=== PATIENT | male | born 1945 | race Caucasian/White ===

== ENCOUNTER 2017-10-20 12:04 | Inpatient (IN) | payer OTHER, MEDICARE ==
[~2017-10-20] VITALS: Ht 182.9 cm; Wt 110.7 kg
--- NOTE | 2017-10-20 14:18 | ED GI/GU/ABDOMINAL COMPLAINT ---
See Addendum History of Present Illness General Chief Complaint: Nausea, Vomiting, Diarrhea Stated Complaint: SENT BY FOR NVD Source: patient Exam Limitations: no limitations Allergies Coded Allergies: NO KNOWN ALLERGIES (10/20/17) Reconcile Medications Aspirin (Aspirin*) 81 MG TAB.CHEW 1 TAB PO DAILY HEART HEALTH (Reported) Atorvastatin Calcium 80 MG TABLET 1 TAB PO DAILY CHOLESTEROL (Reported) Insulin Glargine,Hum.rec.anlog (Toujeo Solostar) (Unknown Strength) INSULN.PEN 75 UNITS SC QPM DIABETES (Reported) Insulin Lispro (Humalog) (Unknown Strength) VIAL (Unknown Dose) DAILY DIABETES (Reported) Lisinopril 20 MG TABLET 1 TAB PO DAILY HEART (Reported) Ondansetron HCl 4 MG TABLET 1 TAB PO BID NAUSEA (Reported) Pregabalin (Lyrica) 200 MG CAPSULE 1 CAP PO BID PAIN (Reported) Sitagliptin Phos/Metformin HCl (Janumet 50-1,000 MG Tablet) 50 MG-1,000 MG TABLET 1 TAB PO BID DIABETES (Reported) Triage Note: PT TO ED WITH C/O NAUSEA, VOMITING AND FREQUENCY WITH URINATION. WENT TO PMD DR BRONSON AND GIVEN ZOFRAN FOR THE NAUSEA. Triage Nurses Notes Reviewed? yes Onset: Abrupt Duration: hour(s):, continues in ED, getting worse, intermittent, waxing and waning Timing: multiple episodes today HPI: Patient presents for evaluation of episodes of diarrhea (Addis RODRIGUEZ,Edwin Kemp) Vital Signs & Intake/Output Vital Signs & Intake/Output Vital Signs Date Time Temp Pulse Resp B/P B/P Pulse O2 O2 Flow FiO2 Mean Ox Delivery Rate 10/23 0647 97.9 72 18 164/84 96 Room Air 10/23 0000 Room Air 10/22 2253 97.8 75 18 158/94 96 Room Air 10/22 1415 98.6 77 18 160/90 96 Room Air 10/22 0915 76 176/76 10/22 0915 76 176/76 10/22 0800 Room Air ED Intake and Output 10/23 0000 10/22 1200 Intake Total 2636 110 Output Total 1900 400 Balance 736 -290 Intake, IV 290 10 Intake, Oral 2346 100 Output, Urine 1900 400 Patient 244 lb Weight Weight Bed scale Measurement Method (Edwin Vanessa DO) Past History Travel History Traveled to [place] past 21 day No Medical History Any Pertinent Medical History? see below for history Cardiovascular: hypertension, hyperlipidemia Endocrine: diabetes Surgical History Surgical History: non-contributory Psychosocial History What is your primary language South Korean Tobacco Use: Quit >30 days ago ETOH Use: denies use Illicit Drug Use: denies illicit drug use Family History Hx Contributory? No (Addis RODRIGUEZ,Edwin Kemp) Review of Systems Review of Systems Constitutional: Reports: no symptoms. EENTM: Reports: no symptoms. Respiratory: Reports: no symptoms. Cardiovascular: Reports: no symptoms. GI: Reports: see HPI. Genitourinary: Reports: no symptoms. Musculoskeletal: Reports: no symptoms. Skin: Reports: no symptoms. Neurological/Psychological: Reports: no symptoms. Hematologic/Endocrine: Reports: no symptoms. Immunologic/Allergic: Reports: no symptoms. All Other Systems: Reviewed and Negative (Addis RODRIGUEZ,Edwin Kemp) Physical Exam Physical Exam Gastrointestinal: SEE BELOW Comments: Gen.: Well-nourished, well-developed, no acute respiratory distress. Head: Normocephalic, atraumatic. Eyes: Normal inspection bilaterally Ears: Normal inspection bilaterally Nose: Normal inspection Throat/mouth : Moist mucosa Neck: Supple, full range of motion, no goiter Heart: Regular rate and rhythm, no murmurs rubs or gallops Lungs: Clear to auscultation bilaterally with normal air entry Chest: Nontender Back: Normal range of motion Abdomen: Soft, nontender, nondistended, normal bowel sounds Extremities: Normal range of motion grossly, equal radial pulses, no cyanosis clubbing or edema Neurologic: Cranial nerves grossly intact, speech is clear Skin: warm and dry Psychiatric: Calm, cooperative, no apparent delusions or hallucinations Core Measures ACS in differential dx? No Sepsis Present: No Sepsis Focused Exam Completed? No (Addis RODRIGUEZ,Edwin Kemp) Progress Differential Diagnosis: COLITIS, DIVERTICULITIS, c. 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 (Addis RODRIGUEZ,Edwin Kemp) Plan of Care: Orders Procedure Date/time Status Consistent Carbohydrate 3 10/22 D Active B-TYPE NATRIURETIC PEP (BNP) 10/22 0640 Complete Lab Add-on Test 10/22 UNK Active Current Medications Sig/Bharat Start time Last Medication Dose Stop Time Status Admin Pregabalin 150 MG BID 10/22 2200 AC 10/22 (Lyrica) 2102 Insulin Aspart 0 TIDAC 10/22 1200 AC 10/22 (NovoLOG) 1702 Lisinopril 30 MG DAILY 10/22 1000 AC 10/22 (Prinivil) 0915 Docusate Sodium 100 MG DAILY NEEDED PRN 10/22 0945 AC (Colace) Polyethylene Glycol 17 GM DAILY PRN 10/22 0945 AC 10/22 (Miralax) 0935 Senna 187 MG AT BEDTIME NEED.. 10/22 0945 AC (Senokot) Azithromycin 500 MG Q24H 10/21 2000 AC 10/22 (Zithromax) 1939 Dextrose/Water 250 ML (D5W) Atorvastatin Calcium 80 MG 1700 10/21 1700 AC 10/22 (Lipitor) 1702 Aspirin 81 MG DAILY 10/21 1000 AC 10/22 (Aspirin) 0913 Heparin Sodium 5,000 UNIT Q8 10/20 2200 AC 10/23 (Porcine) 0544 Trimethobenzamide HCl 200 MG 4 TIMES/DAY PRN 10/20 1815 AC (Tigan) Ceftriaxone Sodium 2,000 MG DAILY 10/20 1807 AC 10/22 (Rocephin) 0915 Laboratory Tests 10/22/17 0805: Urine Osmolality 198 L, Ur Random Creatinine 35.4, Ur Random Sodium 13 L, Ur Random Potassium 8.9, Fraction Sodium Excret 0.2 Initial ED EKG: none, RBBB, nonspecific ST T wave chg, PVC (Edwin Vanessa DO) Departure Departure Disposition: STILL A PATIENT Condition: Stable Referrals: Jonathan Bronson MD (PCP/Family) Departure Forms: Customer Survey General Discharge Information (Edwin Mancini MD) Departure Clinical Impression Primary Impression: Vomiting and diarrhea Secondary Impressions: NSTEMI (non-ST elevated myocardial infarction) Comments 10/20/17 6 PM The patient has no acute changes on his EKG. No chest pain or shortness of breath. He does however have a significantly elevated troponin. Cardiology was consulted. I spoke to Dr. Trujillo who agreed with the plan of care to admit to telemetry. Admission Note Spoke With: Dianna Mccloud MD Documentation of Exam: Documentation of any treatments & extenuating circumstances including Concerns Regarding Discharge (functional status, medication knowledge or non-compliance, living conditions, etc.) that warrant an admission rather than observation: [The patient needs admission for serial troponins, cardiology consultation, cardiac echo, lower extremity ultrasound] (Edwin Vansesa DO)
[2017-10-20] MEDS ORDERED: ASPIRIN81 M4 PO (14:23)
[2017-10-20] MEDS ORDERED: JANUMET 50-1,01 EACH PO (14:24)
[2017-10-20] MEDS ORDERED: ATORVASTATIN CA80 M1 PO (14:24)
[2017-10-20] MEDS ORDERED: LISINOPRIL20 M1 PO (14:24)
[2017-10-20] MEDS ORDERED: HUMALOG100 UNIT/2 (14:25)
[2017-10-20] MEDS ORDERED: TOUJEO SOL300 UNIT/1 SC (14:25)
[2017-10-20] MEDS ORDERED: LYRICA200 M1 PO (14:26)
[2017-10-20] MEDS ORDERED: ONDANSETRON HCL4 MG PO (14:26)
[2017-10-20 14:59] LABS: ABSOLUTE BASOPHIL COUNT 0 /CUMM (0.0-0.2); ABSOLUTE EOSINOPHIL COUNT 0 /CUMM (0.0-0.7); ABSOLUTE GRANULOCYTE CT 5.7 /CUMM (1.4-6.5); ABSOLUTE LYMPH COUNT 1.2 /CUMM (1.2-3.4); ABSOLUTE MONOCYTE COUNT 0.8 /CUMM (0.10-0.60); BASOPHIL % 0.4 % (0.0-2.0); EOSINOPHIL % 0 % (0-5); GRANULOCYTE % 73.9 % (42.2-75.2); MEAN CORPUSCULAR HGB 28.3 PG (27.0-31.0); MEAN CORPUSCULAR VOLUME 83.2 FL (80.0-94.0); MEAN PLATELET VOLUME 8.4 FL (7.4-10.4); PLATELET COUNT 219 /CUMM (130-400); RBC DISTRIBUTION WIDTH 13.9 % (11.5-14.5); RED BLOOD CELL CT 5.29 /CUMM (4.70-6.10); WHITE BLOOD CELL COUNT 7.7 /CUMM (4.8-10.8)
--- NOTE | 2017-10-20 16:45 | CT SCAN REPORT ---
EXAMINATION: CT ABDOMEN AND PELVIS WITH CONTRAST CLINICAL INFORMATION: Diarrhea and vomiting; question colitis, diverticulitis or small bowel obstruction. COMPARISON: None TECHNIQUE: Multidetector volumetric imaging was performed of the abdomen and pelvis following IV administration of 95 mL of Optiray 320 intravenous contrast. Sagittal and coronal reformatted images were obtained on the technologist's workstation. DLP: 1408.27 mGy-cm FINDINGS: LUNG BASES: There is patchy, nodular consolidation at the posterior right base. There are coronary artery atherosclerotic calcifications. LIVER, GALLBLADDER, AND BILIARY TREE: The liver is normal in size, shape, and mildly diminished in attenuation. No focal hepatic lesion or biliary ductal dilatation is present. There are small layering gallstones, without gallbladder wall thickening, or obvious pericholecystic inflammatory changes. PANCREAS: Unremarkable. SPLEEN: Unremarkable. ADRENAL GLANDS: The right adrenal gland is unremarkable. In the posterior limb of the left adrenal gland (2:29), there is a 1.5 cm nodule with post IV contrast Hounsfield value of 24.0 units. KIDNEYS AND URETERS: The kidneys are normal in size, shape, and attenuation. No hydronephrosis, hydroureter, or calculi seen. At the lower pole of the right kidney (602:61), a 1.2 cm low-attenuation probable cyst is seen, too small to fully characterize with CT. No perinephric stranding. BLADDER: Unremarkable. GASTROINTESTINAL TRACT: The rectosigmoid is mildly distended with liquid stool. No focal bowel wall thickening is seen. There is no obstruction or ileus. There is no significant diverticulosis or diverticulitis. The vermiform appendix appears diminutive and unremarkable. ABDOMINAL WALL: There is a small fat-containing umbilical hernia. There are small fat-containing bilateral inguinal hernias. LYMPH NODES: Normal. VASCULAR: There is moderate aortoiliac atherosclerotic change. No abdominal aortic aneurysm is seen. PELVIC VISCERA: The prostate and seminal vesicles are unremarkable. Coarse prostate calcifications are seen. OSSEOUS STRUCTURES: There is marked multi-level thoracolumbar degenerative disc disease and spondylosis. There is a mild anterior wedge compression fracture of L3, chronicity indeterminate. IMPRESSION: 1. There is patchy, nodular consolidation in the posterior right base, with appearance suggesting acute pneumonia. Please correlate clinically. Consider chest radiographic follow-up. 2. There is cholelithiasis, without cholecystitis seen. 3. There is hepatic steatosis. 4. A 1.5 cm left adrenal nodule is indeterminate but likely benign. There are various recommendations for management and followup. Based upon a combination of expert imaging consensus and agronomy manager input ([id number]) if the patient has no known malignancy hormonal evaluation is recommended for these lesions measuring less than or equal to 2.4 cm. Some of these adrenal lesions secrete hormones including cortisol. Repeat imaging may be obtained in 12 months. 5. No bowel obstruction, free intraperitoneal air or abscess is seen. There is no appendicitis or diverticulitis. 6. There are small fat-containing umbilical and bilateral inguinal hernias. 7. There are marked thoracolumbar degenerative changes.
--- NOTE | 2017-10-20 18:05 | History & Physical ---
Miguel RODRIGUEZ,[facility] 10/20/17 1804: General Information and HPI MD Statement: I have seen and personally examined JOEL REIS and documented this H&P. The patient is a 72 year old M who presented with a patient stated chief complaint of [nausea vomiting diarrhea]. Source of Information: patient, family History of Present Illness: 72-year-old male pmhx: HLD, HTN, chronic back pain, diabetes presenting for chief complaint of nausea vomiting diarrhea. Most of history is given by the patient's son is patient is sick of giving the history. The son states that the patient has had nausea vomiting for 3 days. Due to persistent nausea vomiting the patient has not taken any medications for 3 days. The patient is reported a decreased appetite. The patient has had loose stools for 2 days. He also reports chills, abdominal pain, and a few days of coughing. The patient also complains of leg swelling for 2 months. The son states that the patient's has had bronchitis for the past week. The patient felt extremely weak and had difficulty getting up after prolonged periods rest. The patient went to Dr. Villa office and was then sent for an echo. During his visit to the cmv driver, the cmv driver stated that the patient did not need a repeat echo as the patient got one done last recently. The patient states that he does not see a cmv driver regularly. The son states the patient was supposed to see a neurologist as well. The patient was given a prescription for Zofran should not improve his symptoms. He called Dr. Villa today as his symptoms did not improve and was told to go to the emergency department. The patient denies any fevers, eating anything sport, chest pain, shortness breath, dizziness, blurred vision, bleeding. Allergies/Medications Allergies: Coded Allergies: NO KNOWN ALLERGIES (10/20/17) Home Med list Aspirin (Aspirin*) 81 MG TAB.CHEW 1 TAB PO DAILY HEART HEALTH (Reported) Atorvastatin Calcium 80 MG TABLET 1 TAB PO DAILY CHOLESTEROL (Reported) Insulin Glargine,Hum.rec.anlog (Candida Calixtoostsarah) (Unknown Strength) INSULN.PEN (Unknown Dose) SC QPM DIABETES (Reported) Insulin Lispro (Humalog) (Unknown Strength) VIAL (Unknown Dose) DAILY DIABETES (Reported) Lisinopril 20 MG TABLET 1 TAB PO DAILY HEART (Reported) Ondansetron HCl 4 MG TABLET 1 TAB PO BID NAUSEA (Reported) Pregabalin (Lyrica) 200 MG CAPSULE 1 CAP PO BID PAIN (Reported) Sitagliptin Phos/Metformin HCl (Janumet 50-1,000 MG Tablet) 50 MG-1,000 MG TABLET 1 TAB PO BID DIABETES (Reported) Past History Travel History Traveled to [place] past 21 day No Medical History Cardiovascular: hypertension, hyperlipidemia Endocrine: diabetes Surgical History Surgical History: non-contributory Past Family/Social History Psychosocial History Smoking Status: Former Smoker ETOH Use: denies use Illicit Drug Use: denies illicit drug use Review of Systems Review of Systems Constitutional: Reports: see HPI. Exam & Diagnostic Data Last 24 Hrs of Vital Signs/I&O Vital Signs Date Time Temp Pulse Resp B/P B/P Pulse O2 O2 Flow FiO2 Mean Ox Delivery Rate 10/20 1829 98.1 87 18 162/84 95 Room Air 10/20 1625 98.6 86 18 170/90 94 Room Air 10/20 1446 98.3 88 18 158/80 97 Room Air 10/20 1445 96 Room Air 10/20 1220 99.1 88 18 176/75 96 Room Air Room Air Intake & Output 10/20 1600 10/20 0800 10/20 0000 Intake Total 0 Output Total Balance 0 Intake, Oral 0 Patient 243 lb Weight Weight Reported by Patient Measurement Method Physical Exam General Appearance Alert, Oriented X3, Cooperative, No Acute Distress HEENT no JVD Cardiovascular Regular Rate, Normal S1, Normal S2 Lungs diffuse decrease in movement Abdomen Normal Bowel Sounds, Soft, No Tenderness Last 24 Hrs of Labs/Sonny: Laboratory Tests 10/20/17 1544: Urine Color YEL, Urine Clarity CLEAR, Urine pH 6.0, Ur Specific [place] >= 1.030 , Urine Protein >=300 H, Urine Ketones TRACE H, Urine Nitrite NEG, Urine Bilirubin NEG, Urine Urobilinogen 0.2, Ur Leukocyte Esterase NEG, Ur Microscopic SEDIMENT EXAMINED, Urine RBC 5-10 H, Urine WBC 1-3 H, Ur Epithelial Cells RARE , Urine Bacteria MOD H, Hyaline Casts RARE H, Urine Mucus FEW, Urine Hemoglobin LARGE H, Urine Glucose NEG 10/20/17 1439: Anion Gap 9, Estimated GFR > 60, BUN/Creatinine Ratio 21.0, Glucose 54 L, Calcium 8.2 L, Total Bilirubin 0.9, AST 106 H, ALT 70, Alkaline Phosphatase 232 H, Troponin I 0.38 *H, Total Protein 6.3, Albumin 3.0 L, Globulin 3.3, Albumin/Globulin Ratio 0.9 L, Lipase 59, CBC w Diff NO MAN DIFF REQ, RBC 5.29, MCV 83.2, MCH 28.3, MCHC 34.0, RDW 13.9, MPV 8.4, Gran % 73.9, Lymphocytes % 15.8 L, Monocytes % 9.9 H, Eosinophils % 0, Basophils % 0.4, Absolute Granulocytes 5.7, Absolute Lymphocytes 1.2, Absolute Monocytes 0.8 H, Absolute Eosinophils 0, Absolute Basophils 0 Microbiology 10/20 1906 STOOL: Clostridium difficile Toxin A & B - ORD 10/20 183 NASOPHARYN: Influenza Virus A & B Rapid Smear - COMP 10/20 1820 LOWER RESP: Respiratory Culture - ORD 10/20 1820 LOWER RESP: Gram Stain - ORD 10/20 1706 URINE ROUT: Legionella Antigen - COLB 10/20 1706 URINE ROUT: Streptococcus pneumoniae Antigen (M - COLB Assessment/Plan Assessment: A: 72-year-old male pmhx: HLD, HTN, chronic back pain, diabetes presenting for chief complaint of nausea vomiting diarrhea found to also have pneumonia on CT scan. P: #pneumonia Patient remains afebrile without any white count CT chest:here is patchy, nodular consolidation in the posterior right base, with appearance suggesting acute pneumonia. -Sized ceftriaxone, azithromycin #elevated trops trops .38 -Most likely secondary to demand ischemia -Follow-up troponins and EKG x2 mroe to r/o ACS #lytes abnormal possible due to n/v/d vs aldosterone tumor NA 134 K3.3 albumin 3.0 Patient also hypertensive -Follow-up aldosterone levels, plasma renin, metanephrines, and cortisol, -Continue to monitor bep #N/V/D Possibly due to pneumonia versus gastroenteritis versus C. difficile -Encourage by mouth intake -Follow-up C. difficile #hypoglycemia BS 54 -stop home medications - Continue NovoLog sliding scale -Consider endocrinology consult as patient does not have a electric locomotive firer/fireman #htn BP Max 176/75 #ct findings; gallstones, fatty liver, L adrenal nodule, degenerative spine 1. There is cholelithiasis 2. There is hepatic steatosis. 3. A 1.5 cm left adrenal nodule is indeterminate but likely benign. 4. There are small fat-containing umbilical and bilateral inguinal hernias. 5. There are marked thoracolumbar degenerative changes. -Outpatient follow-up for left adrenal nodule #chronic medical conitions; hld, back pain -aspirin, Atorvastatin, pregabalin #FULL CODE #DVT ppx heparin subcutaneous As Ranked By This Provider Problem List: 1. Gastroenteritis 2. Hypoglycemia 3. Pneumonia 4. Elevated troponin 5. Abnormal finding on CT scan Core Measures/Misc (04/12) Acute Coronary Syndrome ACS Diagnosis: No Congestive Heart Failure Congestive Heart Failure Diagnosis No Cerebrovascular Accident CVA/TIA Diagnosis: No VTE (View Protocol) VTE Risk Factors Acute Medical Illness No Mechanical VTE Prophylaxis d/t N/A MechProphylax Ordered No VTE Pharm Prophylaxis d/t NA PharmProphylax ordered Sepsis (View protocol) Sepsis Present: No Charity Santacruz MD 10/20/17 1809: Resident Review Statement Resident Statement: examined this patient, discussed with internet database specialist, agreed with internet database specialist Other Findings: Patient is a 72-year-old male presented with chief complaints of nausea, vomiting, increased frequency of urination. He went to Dr. Pollock office and was given Zofran and advised to come to the [facility]. History is taken from the patient and his son Robbie. According to them patient was sick since last 3-4 days. He started having diarrhea, in terms of increase frequency of stool 2-3 times in a day. Followed by nausea and vomiting. Since yesterday he is not able to take any food or food by the mouth. He did follow Dr. Pollock who advised for cardiology and neurology evaluation because he was having weakness in his hands. He went to Dr. Xavier who cleared from the cardiology point of view. Because he was weak and not able to tolerate food and fluid, he again called Dr. Fuentes in the morning and who advised him to come to the [facility]. Of note patient was also complaining of cough with expectoration since couple of days. And he also told that his is sick since 8-10 days because of bronchitis and currently on antibiotic. Of note he was having bilateral lower leg swelling since last 1 or 2 months and had an episode of fall a month ago without any injury. He denies for any shortness of breath, chest pain, palpitation, dizziness, blurry vision. ED course Vital signs-temperature 99.1, pulse 88, respiratory 18, blood pressure 176/75, SPO2 96% on room air. Physical exam -patient is conscious, cooperative, alert oriented to time place and person, morbidly obese, was anxious because he was hungry, oral cavity moist , neck short, no JVD, chest-right lower lobe crackles -inspiratory, heart S1-S2 normal, abdomen distended, bilateral lower extremities pitting edema present. EKG -RBBB, HR -85, inverted T wave -III,AVF. Blood workup showed hemoglobin 15.0, hematocrit 44, platelet count 219, monocytes 9.9, no band cells, sodium 134, potassium 3.3, chloride 97, anion gap 9, BUN 21, creatinine 1.0, glucose 54, calcium 8.2, total bilirubin 0.9, AST 106 , ALT 70, alkaline phosphate 232, troponin I 0.38, albumin 3.0, globulin 3.3, urinalysis shows urine protein more than 300 and ketones are trace. PMH - Diabetes since last 20 years on insulin pump. Hypertension Hyperlipidemia Chronic back pain Surgical history-noncontributory Allergies-no known drug allergies Family history-both parents are Personal history-he lives at home, uses cane off and on, he quit smoking around 30 years ago, denies for alcohol and illicit drug abuse. Assessment and plan - Right lower lobe pneumonia, possibly community-acquired but aspiration cannot be ruled out - * We will do a urinary Legionella, strep antigen, flu test, LRTC * We will start patient on ceftriaxone and azithromycin * If patient started spiking fever then we will take the blood cultures. * We will start patient on IV fluid D5/NS -75 cc/h * Inj tigan as needed for nausea (QTc is 509) Type 2 diabetes - * Consistent carbohydrate type II * Fingerstick 3 times daily/at bedtime * NovoLog according to the sliding scale * We will start patient on IV fluid D5/normal saline 75 cc/h Type II NM/demand ischemia - * We will do serial troponins and EKG. * Will follow cardiology recommendation -Dr. Palma group he is following Dr. 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 * Supplement pottasium. CODE STATUS-full code Diet-consistent carbohydrate to diet and if patient not able to tolerate and keep n.p.o. for overnight DVT prophylaxis-Alps/heparin Dianna Mccloud MD 10/20/17 1854: Attending MD Review Statement Attending Statement Attending MD Statement: examined this patient, discuss w/resident/PA/SENIOR COLDFUSION DEVELOPER, agreed w/resident/PA/SENIOR COLDFUSION DEVELOPER, reviewed EMR data (avail) Attending Assessment/Plan: 72M PMH HTN, HLD, T2DM with 2 days of nausea, vomiting, diarrhea, and abdominal cramping, went to his PCP yesterday, given Zofran, comes to ED today because of persistance of symptoms. He actually feels a bit better now and hungry for the first time in two days. He has a deep, productive cough and had to catch his breath after a coughing fit in front of me. This has been present for 2-3 days. He is afebrile, stable vitals, but was found to have a troponin of 0.33. EKG shows RBBB, no ST/T changes. He reports feeling weak with malaise, but denies chest pain, palpitations, SOB, diaphoresis, lightheadedness. CT abdomen shows RLL pneumonia and 1.5cm adrenal nodule. 1. RLL pneumonia 2. Elevated troponin 3. Adrenal nodule 4. Acute gastroenteritis 5. Dehydration Plan - Admit to telemetry - Ceftriaxone and Azithromycin - Sputum culture - Send C.diff - Serial troponin and EKG - If next troponin is higher would start heparin - ASA and statin - IV hydration - Monitor electrolytes - Given elevated troponin and adrenal nodule, would check 24-hour metanephrines and cortisol level - Zofran PRN for nausea - Clear liquid diet, if troponin rising or EKG changes make NPO for prospective cardiac cath - Cardiology consult - Continue home medications - Sliding scale insulin - DVT PPx
--- NOTE | 2017-10-20 18:36 | Cons- Cardiology ---
General Information and HPI Consulting Request Date of Consult: 10/20/17 Requested By: Dianna Mccloud MD Reason for Consult: Positive troponin in a patient who presents with nonspecific symptoms. Source of Information: patient, old records Exam Limitations: poor historian History of Present Illness: The patient is a 72-year-old man with no history of heart disease. Has had hypertension, dyslipidemia and diabetes. Apparently his diabetes is not well- controlled. The patient was complaining of nausea, vomiting and polyuria. He is also having diarrhea. He has not been eating well. He came to the hospital where his troponin was found to be 0.38, although is not having any chest pain, shortness of breath, palpitations, dizziness, syncope. He does have chronic ankle edema. His EKG shows right bundle branch block and PVCs and we have no old EKGs for comparison. Allergies/Medications Allergies: Coded Allergies: NO KNOWN ALLERGIES (10/20/17) Home Med List: Aspirin (Aspirin*) 81 MG TAB.CHEW 1 TAB PO DAILY HEART HEALTH (Reported) Atorvastatin Calcium 80 MG TABLET 1 TAB PO DAILY CHOLESTEROL (Reported) Insulin Glargine,Hum.rec.anlog (Toujeo Solostar) (Unknown Strength) INSULN.PEN (Unknown Dose) SC QPM DIABETES (Reported) Insulin Lispro (Humalog) (Unknown Strength) VIAL (Unknown Dose) DAILY DIABETES (Reported) Lisinopril 20 MG TABLET 1 TAB PO DAILY HEART (Reported) Ondansetron HCl 4 MG TABLET 1 TAB PO BID NAUSEA (Reported) Pregabalin (Lyrica) 200 MG CAPSULE 1 CAP PO BID PAIN (Reported) Sitagliptin Phos/Metformin HCl (Janumet 50-1,000 MG Tablet) 50 MG-1,000 MG TABLET 1 TAB PO BID DIABETES (Reported) Current Medications: Current Medications Sig/Bharat Start time Last Medication Dose Route Stop Time Status Admin Aspirin 81 MG DAILY 10/21 1000 AC PO Atorvastatin Calcium 80 MG 1700 10/21 1700 AC PO Azithromycin 500 MG DAILY 10/20 1808 AC Dextrose/Water 250 ML IV Ceftriaxone Sodium 2,000 MG DAILY 10/20 1807 AC IV Dextrose/Water 1,000 ML Q13H 10/20 1715 AC IV Heparin Sodium 5,000 UNIT Q8 10/20 2200 AC (Porcine) SC Insulin Aspart 0 TIDAC 10/21 0800 AC SC Lisinopril 20 MG DAILY 10/20 1824 UNVr PO Ondansetron HCl 0 .STK-MED ONE 10/20 1550 DC .ROUTE Ondansetron HCl 4 MG ONCE ONE 10/20 1515 DC 10/20 IV 10/20 1516 1600 Sodium Chloride 1,000 ML Q13H 10/20 1715 CAN IV Sodium Chloride 500 ML BOLUS ONE 10/20 1515 DC 10/20 IV 10/20 1614 1542 Trimethobenzamide HCl 200 MG 4 TIMES/DAY PRN 10/20 1815 AC IM Review of Systems Review of Systems: He is complaining of chronic back pain in addition to his presenting symptoms Past History Travel History Traveled to [place] past 21 day No Medical History Cardiovascular: hypertension, hyperlipidemia Endocrine: diabetes Surgical History Surgical History: non-contributory Psychosocial History ETOH Use: denies use Illicit Drug Use: denies illicit drug use Exam & Diagnostic Data Vital Signs and I&O Vital Signs Date Time Temp Pulse Resp B/P B/P Pulse O2 O2 Flow FiO2 Mean Ox Delivery Rate 10/20 1625 98.6 86 18 170/90 94 Room Air 10/20 1446 98.3 88 18 158/80 97 Room Air 10/20 1445 96 Room Air 10/20 1220 99.1 88 18 176/75 96 Room Air Room Air Intake & Output 10/20 1600 10/20 0800 10/20 0000 10/19 1600 10/19 0800 10/19 0000 Intake Total 0 Output Total Balance 0 Intake, Oral 0 Patient 243 lb Weight Weight Reported by Patient Measurement Method Physical Exam: This is an elderly-appearing obese man in mild distress HEENT exam is normal Neck veins not distended Carotids normal Chest clear to limited exam Heart regular rhythm with occasional extrasystole heard, soft systolic murmur at the base Abdomen benign Extremities 1-2+ ankle and lower extremity edema Labs/Sonny Results: Laboratory Tests 10/20 10/20 1544 1439 Chemistry Sodium (137 - 145 mmol/L) 134 L Potassium (3.5 - 5.1 mmol/L) 3.3 L Chloride (98 - 107 mmol/L) 97 L Carbon Dioxide (22 - 30 mmol/L) 29 Anion Gap (5 - 16) 9 BUN (9 - 20 mg/dL) 21 H Creatinine (0.7 - 1.2 mg/dL) 1.0 Estimated GFR (>60 ml/min) > 60 BUN/Creatinine Ratio (7 - 25 %) 21.0 Glucose (65 - 99 mg/dL) 54 L Calcium (8.4 - 10.2 mg/dL) 8.2 L Total Bilirubin (0.2 - 1.3 mg/dL) 0.9 AST (17 - 59 U/L) 106 H ALT (21 - 72 U/L) 70 Alkaline Phosphatase (< 127 U/L) 232 H Troponin I (<0.11 ng/ml) 0.38 *H Total Protein (6.3 - 8.2 g/dL) 6.3 Albumin (3.5 - 5.0 g/dL) 3.0 L Globulin (1.9 - 4.2 gm/dL) 3.3 Albumin/Globulin Ratio (1.1 - 2.2 %) 0.9 L Lipase (23 - 300 U/L) 59 Hematology CBC w Diff NO MAN DIFF REQ WBC (4.8 - 10.8 /CUMM) 7.7 RBC (4.70 - 6.10 /CUMM) 5.29 Hgb (14.0 - 18.0 G/DL) 15.0 Hct (42 - 52 %) 44.0 MCV (80.0 - 94.0 FL) 83.2 MCH (27.0 - 31.0 PG) 28.3 MCHC (33.0 - 37.0 G/DL) 34.0 RDW (11.5 - 14.5 %) 13.9 Plt Count (130 - 400 /CUMM) 219 MPV (7.4 - 10.4 FL) 8.4 Gran % (42.2 - 75.2 %) 73.9 Lymphocytes % (20.5 - 51.1 %) 15.8 L Monocytes % (1.7 - 9.3 %) 9.9 H Eosinophils % (0 - 5 %) 0 Basophils % (0.0 - 2.0 %) 0.4 Absolute Granulocytes (1.4 - 6.5 /CUMM) 5.7 Absolute Lymphocytes (1.2 - 3.4 /CUMM) 1.2 Absolute Monocytes (0.10 - 0.60 /CUMM) 0.8 H Absolute Eosinophils (0.0 - 0.7 /CUMM) 0 Absolute Basophils (0.0 - 0.2 /CUMM) 0 Urines Urine Color (YEL,AMB,STR) YEL Urine Clarity (CLEAR) CLEAR Urine pH (5.0 - 8.0) 6.0 Ur Specific [place] (1.001 - 1.035) >= 1.030 Urine Protein (NEG,<30 MG/DL) >=300 H Urine Ketones (NEG) TRACE H Urine Nitrite (NEG) NEG Urine Bilirubin (NEG) NEG Urine Urobilinogen (0.1 - 1.0 EU/dl) 0.2 Ur Leukocyte Esterase (NEG) NEG Ur Microscopic SEDIMENT EXAMINED Urine RBC (0 - 5 /HPF) 5-10 H Urine WBC (0 - 2 /HPF) 1-3 H Ur Epithelial Cells (NONE,FEW) RARE Urine Bacteria (NEG/NONE) MOD H Hyaline Casts (0/LPF) RARE H Urine Mucus (FEW,NONE) FEW Urine Hemoglobin (NEG) LARGE H Urine Glucose (N MG/DL) NEG Diagnostic Data EKG Results EKG shows a sinus rhythm at rate of 80 with occasional PVCs and right bundle branch block pattern. There are no old EKGs for comparison. CXR Results Not done. CT of the abdomen noted possible pneumonia in the posterior right base of the long Assessment/Plan Assessment/Plan The patient is a 72-year-old man who presents with nonspecific abdominal and GI complaints. He is found to have an abnormal EKG although it does not appear to be anything acute, and a Troponin of 0.38. I recommend telemetry admission with trending of the EKGs and troponins. I would obtain an echocardiogram. If his troponin rises significantly then acute heparinization may be indicated, if not contraindicated by GI. Further recommendations will follow after additional monitoring and testing. Consult Acknowledgment - Thank you for your consult request.
--- NOTE | 2017-10-20 18:58 | Admission Certification ---
Admission Certification Certification Statement - As attending physician, I certify that at the time of - admission, based on clinical presentation, severity of - symptoms, need for further diagnostic testing and - therapeutic interventions, and risk of adverse outcomes - without in-hospital treatment, in my clinical assessment, - this patient requires an acute hospital stay for a minimum - of two nights or longer. I have also considered psychsocial - factors such as support system, advanced age, financial - issues, cognitive issues, and failed out-patient treatments, - past re-admission history, safety of patient, and lack of - compliance as applicable. Specific rationale supporting this admission is: Gastroenteritis with elevated troponin
[2017-10-20 21:51] VITALS: BP 178/80
--- NOTE | 2017-10-21 09:51 | PN- Housestaff ---
Miguel RODRIGUEZ,[facility] 10/21/17 0951: Subjective Follow-up For: N/V ?aldosterone tumor Pna type 2 UT hypoglycemia HTN abnormal electrolytes Tele-Events Since Last Visit: SVT run last evening Subjective: No acute events overnight. Continues to have some cough. NO SOB or chest pain. States leg swelling has improved. Review of Systems Constitutional: Reports: see HPI. Objective Last 24 Hrs of Vital Signs/I&O Vital Signs Date Time Temp Pulse Resp B/P B/P Pulse O2 O2 Flow FiO2 Mean Ox Delivery Rate 10/21 1654 77 198/84 10/21 1440 97.8 86 20 172/78 96 Room Air 10/21 0755 84 178/80 10/21 0354 Room Air 10/20 2307 98.9 10/20 2151 94 Room Air 10/20 2151 84 24 178/80 94 Room Air 10/20 2124 99.2 80 18 158/90 97 Room Air 10/20 2041 87 162/84 Intake & Output 10/21 1600 10/21 0800 10/21 0000 Intake Total 1200 1200 2105 Output Total 600 100 Balance 8718 514 8205 Intake, IV 445 806 1099 Intake, Oral 600 600 780 Number 2 1 4 Bowel Movements Output, Urine 600 100 Patient 243 lb Weight Weight Bed scale Measurement Method Physical Exam General Appearance: Alert, Oriented X3, Cooperative Cardiovascular: Regular Rate, Normal S1, Normal S2 Lungs: RML and RLL crackles Abdomen: Normal Bowel Sounds, Soft, No Tenderness Extremities: LLE 3+ edema vs RLE 2+ edema Vascular: 2+ radial pulses Assessment/Plan Assessment: A: 72-year-old male pmhx: HLD, HTN, chronic back pain, diabetes presenting for chief complaint of nausea vomiting diarrhea found to also have pneumonia on CT scan. P: #pneumonia Patient remains afebrile without any white count CT chest:here is patchy, nodular consolidation in the posterior right base, with appearance suggesting acute pneumonia. Flu, urinary antigens, negative Passed formal swallow eval - cont ceftriaxone, azithromycin #type II UT trops .38, .27, .2 Echo - EF >65% -Most likely secondary to demand ischemia 2/2 to infection #lytes abnormal possible due to n/v/d vs aldosterone tumor NA 134 -> 131 K3.3 albumin 3.0 Patient also hypertensive -holding fluids as patient now taking po -replenishing lytes as needed -f/u repeat 9pm k+ -Follow-up aldosterone levels, plasma renin, metanephrines, and cortisol, -Continue to monitor bep #N/V/D Possibly due to pneumonia versus gastroenteritis C.diff negative -Encourage by mouth intake #hypoglycemia BS 54 originally -stop home medications - Continue NovoLog sliding scale -Consider endocrinology consult as 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 There is cholelithiasis 2. There is hepatic steatosis. 3. A 1.5 cm left adrenal nodule is indeterminate but likely benign. 4. There are small fat-containing umbilical and bilateral inguinal hernias. 5. There are marked thoracolumbar degenerative changes. -will need outpatient follow-up for left adrenal nodule #chronic medical conitions; hld, back pain -aspirin, Atorvastatin, pregabalin #FULL CODE #DVT ppx heparin subcutaneous Problem List: 1. Abnormal finding on CT scan 2. Gastroenteritis 3. Pneumonia 4. Type 2 myocardial infarction Pain Ratin Pain Location: none Pain Goal: Pain 4 or less Pain Plan: pain pathway Tomorrow's Labs & Rationales: bep Trina Salinasjames 10/21/17 1517: Attending MD Review Statement Attending Statement Attending MD Statement: examined this patient, discuss w/resident/PA/COMMISSARY SUPERINTENDENT, agreed w/resident/PA/COMMISSARY SUPERINTENDENT, reviewed EMR data (avail), discussed with nursing, discussed with case mgmt Attending Assessment/Plan: Pneumonia- CT scan showed post rt base consolidation. pt wbing treated on ceftrixone and zithromax. Hyponatremia and hypokalemia. replaced potassium. Will recheck sodium level in am. Trop trending down. WIll f/u on cardio recommendatiosn. Likely type 2 UT secondary to demand ischemia. Await echo results. Gallstones on CT scan but no evidence of cholecystitis.
--- NOTE | 2017-10-21 10:51 | PN- Cardiology ---
Subjective Subjective: The patient is feeling better today. He was able to eat this morning without nausea or vomiting. His troponins have been decreasing and the latest one was 0.20. There've been no arrhythmias. His echocardiogram was done and will be read shortly. Objective Vital Signs and I&Os Vital Signs Date Time Temp Pulse Resp B/P B/P Pulse O2 O2 Flow FiO2 Mean Ox Delivery Rate 10/21 0755 84 178/80 10/21 0354 Room Air 10/20 2307 98.9 10/20 2151 94 Room Air 10/20 2151 84 24 178/80 94 Room Air 10/20 2124 99.2 80 18 158/90 97 Room Air 10/20 2041 87 162/84 10/20 1829 98.1 87 18 162/84 95 Room Air 10/20 1625 98.6 86 18 170/90 94 Room Air 10/20 1446 98.3 88 18 158/80 97 Room Air 10/20 1445 96 Room Air 10/20 1220 99.1 88 18 176/75 96 Room Air Room Air Intake & Output 10/21 1600 10/21 0800 10/21 0000 10/20 1600 10/20 0800 10/20 0000 Intake Total 1200 2105 0 Output Total 600 100 Balance 600 2005 0 Intake, IV 600 1325 Intake, Oral 600 780 0 Number 1 4 Bowel Movements Output, Urine 600 100 Patient 243 lb 243 lb Weight Weight Bed scale Reported by Patient Measurement Method Physical Exam: He is in no distress HEENT exam is normal Chest is clear Heart regular rhythm, soft systolic murmur at the base Extremities good pulses Current Medications: Current Medications Sig/Bharat Start time Last Medication Dose Route Stop Time Status Admin Aspirin 81 MG DAILY 10/21 1000 AC 10/21 PO 0755 Aspirin 0 .STK-MED ONE 10/20 190 DC PO Aspirin 81 MG ONCE ONE 10/20 1830 DC 10/20 PO 10/20 183 2041 Atorvastatin Calcium 80 MG 1700 10/21 1700 AC PO Azithromycin 500 MG Q24H 10/21 2000 AC Dextrose/Water 250 ML IV Azithromycin 500 MG DAILY 10/20 180 DC 10/20 Dextrose/Water 250 ML IV 204 Ceftriaxone Sodium 0 .STK-MED ONE 10/20 1904 DC .ROUTE Ceftriaxone Sodium 0 .STK-MED ONE 10/20 190 DC .ROUTE Ceftriaxone Sodium 2,000 MG DAILY 10/20 1807 AC 10/21 IV 0754 Dextrose/Water 1,000 ML Q13H 10/20 1715 AC 10/20 IV 2116 Heparin Sodium 5,000 UNIT Q8 10/20 2200 AC 10/21 (Porcine) SC 0546 Insulin Aspart 0 TIDAC 10/21 0800 AC SC Lisinopril 0 .STK-MED ONE 10/20 1902 DC PO Lisinopril 20 MG DAILY 10/20 1824 AC 10/21 PO 0755 Ondansetron HCl 0 .STK-MED ONE 10/20 1550 DC .ROUTE Ondansetron HCl 4 MG ONCE ONE 10/20 1515 DC 10/20 IV 10/20 1516 1600 Potassium Chloride 40 MEQ BID 10/21 1000 AC PO 10/21 2201 Potassium Chloride 40 MEQ ONCE ONE 10/20 1930 DC 10/20 PO 10/20 1931 2230 Sodium Chloride 1,000 ML Q13H 10/20 1715 CAN IV Sodium Chloride 500 ML BOLUS ONE 10/20 1515 DC 10/20 IV 10/20 1614 1542 Trimethobenzamide HCl 200 MG 4 TIMES/DAY PRN 10/20 1815 AC IM Results Last 48 Hrs of Labs/Mics: Laboratory Tests 10/21/17 0628: Anion Gap 9, Estimated GFR > 60, BUN/Creatinine Ratio 23.3, Magnesium 1.6, Total Bilirubin 0.7, Direct Bilirubin 0.4, AST 101 H, ALT 65, Alkaline Phosphatase 203 H, Total Protein 5.1 L, Albumin 2.3 L 10/21/17 0209: Troponin I 0.20 *H 10/20/172111: Troponin I 0.27 *H 10/20/17 211: Renin Pending, Aldosterone Pending 10/20/17 1544: Urine Color YEL, Urine Clarity CLEAR, Urine pH 6.0, Ur Specific [place] >= 1.030 , Urine Protein >=300 H, Urine Ketones TRACE H, Urine Nitrite NEG, Urine Bilirubin NEG, Urine Urobilinogen 0.2, Ur Leukocyte Esterase NEG, Ur Microscopic SEDIMENT EXAMINED, Urine RBC 5-10 H, Urine WBC 1-3 H, Ur Epithelial Cells RARE , Urine Bacteria MOD H, Hyaline Casts RARE H, Urine Mucus FEW, Urine Hemoglobin LARGE H, Urine Glucose NEG 10/20/17 1439: Anion Gap 9, Estimated GFR > 60, BUN/Creatinine Ratio 21.0, Glucose 54 L, Hemoglobin A1c Pending, Calcium 8.2 L, Total Bilirubin 0.9, AST 106 H, ALT 70, Alkaline Phosphatase 232 H, Troponin I 0.38 *H, Total Protein 6.3, Albumin 3.0 L, Globulin 3.3, Albumin/Globulin Ratio 0.9 L, Lipase 59, Cortisol AM Sample 26.2 H, CBC w Diff NO MAN DIFF REQ, RBC 5.29, MCV 83.2, MCH 28.3, MCHC 34.0, RDW 13.9, MPV 8.4, Gran % 73.9, Lymphocytes % 15.8 L, Monocytes % 9.9 H, Eosinophils % 0, Basophils % 0.4, Absolute Granulocytes 5.7, Absolute Lymphocytes 1.2, Absolute Monocytes 0.8 H, Absolute Eosinophils 0, Absolute Basophils 0 Microbiology 10/20 1834 NASOPHARYN: Influenza Virus A & B Rapid Smear - COMP Recent Imaging Studies: CONCLUSIONS Normal global left ventricular size, wall thickness, systolic function with no obvious regional wall motion abnormalities. Left ventricular ejection fraction is estimated at >65 %. The left atrium is normal in size. Mild thickening/calcification of the mitral valve leaflets. Mild mitral annular calcification. Focal thickening of the aortic valve cusps. No aortic stenosis. Pulmonary artery systolic pressure is normal. The aortic arch and great vessels are not seen. Joe Trujillo M.D. (Electronically Signed) Final Date: 21 October 2017 12:31 Assessment/Plan Assessment/Plan The patient is feeling better. He is on antibiotics for possible pneumonia. He has type II CT as a result. I would continue the same cardiac treatment. He does not require IV heparin at this time. I will review his echocardiogram. I recommend a PA and lateral chest x-ray which he did not have on admission. Continue telemetry? Yes
--- NOTE | 2017-10-21 12:32 | ECHOCARDIOGRAM REPORT ---
JOEL REIS Age: 72 : 1945 Gender: M Exam Date: 10/21/2017 09:59 Exam Location: 1 [place] Ht (in): 72 Wt (lb): 243 BSA: 2.40 BP: 178 / 80 Ordering Physician: Hua Mendieta MD Referring Physician: Hua Mendieta MD Technologist: Manolo Robison [facility] Room Number: 184-1 Indications: Chest Pain Rhythm: Sinus Technical Quality: Fair FINDINGS Left Ventricle Normal global left ventricular size, wall thickness, systolic function with no obvious regional wall motion abnormalities. Left ventricular ejection fraction is estimated at >65 %. Normal left ventricular diastolic filling pattern for age. Right Ventricle The right ventricle is normal in size and function. Right Atrium The right atrium is normal in size. Left Atrium The left atrium is normal in size. The interatrial septum is intact. Mitral Valve Mild thickening/calcification of the mitral valve leaflets. Mild mitral annular calcification. No mitral regurgitation. Aortic Valve Focal thickening of the aortic valve cusps. No aortic stenosis. No aortic regurgitation. Tricuspid Valve The tricuspid valve is normal in structure and function. There is trace tricuspid regurgitation. Pulmonary artery systolic pressure is normal. Pulmonic Valve Structurally normal pulmonic valve. There is trace pulmonic regurgitation. Pericardium Normal pericardium without effusion. No pleural effusion. Great Vessels Normal aortic root dimension. The aortic arch and great vessels are not seen. CONCLUSIONS Normal global left ventricular size, wall thickness, systolic function with no obvious regional wall motion abnormalities. Left ventricular ejection fraction is estimated at >65 %. The left atrium is normal in size. Mild thickening/calcification of the mitral valve leaflets. Mild mitral annular calcification. Focal thickening of the aortic valve cusps. No aortic stenosis. Pulmonary artery systolic pressure is normal. The aortic arch and great vessels are not seen. Joe Trujillo M.D. (Electronically Signed) Final Date: 21 October 2017 12:31 MEASUREMENTS (Male / Female) Normal Values 2D ECHO LV Diastolic Diameter PLAX 4.8 cm 4.2 - 5.9 / 3.9 - 5.3 cm LV Systolic Diameter PLAX 2.5 cm 2.1 - 4.0 cm LV Fractional Shortening PLAX 47.9 % 25 - 46 % LV Ejection Fraction 2D Teich 79.2 % IVS Diastolic Thickness 1.1 cm LVPW Diastolic Thickness 0.9 cm LV Relative Wall Thickness 0.4 RV Internal Dim ED PLAX 3.4 cm 1.9 - 3.8 cm LVOT Diameter 1.9 cm Aortic Root Diameter 3.0 cm LA Systolic Diameter LX 3.9 cm 3.0 - 4.0 / 2.7 - 3.8 cm LA Volume 48.0 cm 18 - 58 / 22 - 52 cm Ascending Aorta Diameter 3.0 cm DOPPLER AV Peak Velocity 145.0 cm/s AV Peak Gradient 8.4 mmHg AV Mean Velocity 93.3 cm/s AV Mean Gradient 4.0 mmHg AV Velocity Time Integral 29.8 cm LVOT Peak Velocity 96.3 cm/s LVOT Peak Gradient 3.7 mmHg LVOT Mean Velocity 59.0 cm/s LVOT Mean Gradient 2.0 mmHg LVOT Velocity Time Integral 25.5 cm LVOT Stroke Volume 72.3 cm AV Area Cont Eq vti 2.4 cm AV Area Cont Eq pk 1.9 cm MV Peak Velocity 138.0 cm/s MV Peak Gradient 7.6 mmHg MV Mean Velocity 78.6 cm/s MV Mean Gradient 3.0 mmHg Mitral E Point Velocity 84.9 cm/s Mitral A Point Velocity 77.0 cm/s Mitral E to A Ratio 1.1 MV PHT Velocity 138.0 cm/s MV Deceleration [place] 564.0 cm/s MV Pressure Half Time 73.4 ms MV Area PHT 3.0 cm MV Deceleration Time 225.0 ms TR Peak Velocity 210.0 cm/s TR Peak Gradient 17.6 mmHg Right Atrial Pressure 5.0 mmHg Pulmonary Artery Systolic Pressu 22.6 mmHg Right Ventricular Systolic Press 22.6 mmHg PV Peak Velocity 146.0 cm/s PV Peak Gradient 8.5 mmHg PV Mean Velocity 89.9 cm/s PV Mean Gradient 4.0 mmHg PV Velocity Time Integral 30.8 cm LV E' Lateral Velocity 5.4 cm/s Mitral E to LV E' Lateral Ratio 15.8 LV E' Septal Velocity 6.1 cm/s Mitral E to LV E' Septal Ratio 13.8
[2017-10-21 14:40] VITALS: BP 172/78
--- NOTE | 2017-10-21 15:07 | RADIOLOGY REPORT ---
EXAMINATION: XR CHEST CLINICAL INFORMATION: Right lower lobe pneumonia found on CT scan of the abdomen. COMPARISON: CT scan of the abdomen and pelvis dated 10/20/2017. TECHNIQUE: 2 views of the chest were obtained. FINDINGS: The cardiomediastinal silhouette is within normal limits in size allowing for technique. Dense consolidation is seen in the right lower lobe, corresponding to the CT scan findings, consistent with pneumonia. Some reticular opacities are also seen in the left lung base, likely due to subsegmental atelectasis. No effusion or pneumothorax is seen. Mild vertebral spondylosis is seen in the lower thoracic spine. Degenerative changes are seen in the left AC joint. IMPRESSION: 1. Dense consolidation in right lower lobe, corresponding to the pneumonia seen on CT scan. 2. Mild left lower lobe subsegmental atelectasis.
[2017-10-21 18:50] VITALS: BP 142/80
[2017-10-21 22:37] VITALS: BP 140/78
[2017-10-22 06:57] VITALS: BP 154/78
--- NOTE | 2017-10-22 07:35 | PN- Housestaff ---
Miguel RODRIGUEZ,[facility] 10/22/17 0735: Subjective Follow-up For: N/V ?aldosterone tumor Pna type 2 ND hypoglycemia HTN abnormal electrolytes Tele-Events Since Last Visit: NSR/BBB HR 6979 QRS .12 [place] 0.18 Subjective: No acute events overnight. Still states that he has some cough of white sputum. No headaches. No chest pain or shortness breath. Review of Systems Constitutional: Reports: see HPI. Objective Last 24 Hrs of Vital Signs/I&O Vital Signs Date Time Temp Pulse Resp B/P B/P Pulse O2 O2 Flow FiO2 Mean Ox Delivery Rate 10/22 09 76 176/76 10/22 0915 76 176/76 10/22 0800 Room Air 10/22 0657 98.4 74 18 154/78 95 Room Air 10/21 2237 98.9 78 16 140/78 94 10/21 1850 99.3 79 22 142/80 96 10/21 1654 77 198/84 10/21 1600 Room Air 10/21 1440 97.8 86 20 172/78 96 Room Air Intake & Output 10/22 1600 10/22 0800 10/22 0000 Intake Total 110 750 Output Total 498 448 6750 Balance -300 -290 -350 Intake, IV 10 250 Intake, Oral 100 500 Number 0 Bowel Movements Output, Urine 419 352 8117 Patient 244 lb 246 lb Weight Weight Bed scale Measurement Method Physical Exam General Appearance: Alert, Oriented X3, Cooperative, No Acute Distress Cardiovascular: Regular Rate, Normal S1, Normal S2, No Murmurs Lungs: Normal Air Movement, RLL crackles Abdomen: Normal Bowel Sounds, Soft, No Tenderness Extremities: 2+ lower extremity edema Vascular: 2+ radial pulses Current Medications: Current Medications Sig/Bharat Start time Last Medication Dose Route Stop Time Status Admin Aspirin 81 MG DAILY 10/21 1000 AC 10/22 PO 0913 Atorvastatin Calcium 80 MG 1700 10/21 1700 AC 10/21 PO 1651 Azithromycin 500 MG Q24H 10/21 2000 AC 10/21 Dextrose/Water 250 ML IV 2148 Ceftriaxone Sodium 2,000 MG DAILY 10/20 1807 AC 10/22 IV 0915 Docusate Sodium 100 MG DAILY NEEDED PRN 10/22 0945 AC PO Heparin Sodium 5,000 UNIT Q8 10/20 2200 AC 10/22 (Porcine) SC 0552 Insulin Aspart 0 TIDAC 10/22 1200 AC 10/22 SC 1158 Insulin Aspart 0 TIDAC 10/21 0800 DC 10/22 SC 0912 Lisinopril 30 MG DAILY 10/22 1000 AC 10/22 PO 0915 Lisinopril 10 MG ONCE ONE 10/21 1600 DC 10/21 PO 10/21 1601 1654 Lisinopril 20 MG DAILY 10/20 1824 DC 10/21 PO 0755 Magnesium Oxide 400 MG BID 10/22 0100 AC 10/22 PO 10/22 2201 0913 Polyethylene Glycol 17 GM DAILY PRN 10/22 0945 AC 10/22 PO 0935 Potassium Chloride 40 MEQ ONCE ONE 10/22 0045 DC 10/22 PO 10/22 0046 0051 Potassium Chloride 40 MEQ BID 10/21 1000 DC 10/21 PO 10/21 2201 1833 Pregabalin 200 MG BID 10/21 2200 AC 10/22 PO 0915 Senna 187 MG AT BEDTIME NEED.. 10/22 0945 AC PO Trimethobenzamide HCl 200 MG 4 TIMES/DAY PRN 10/20 1815 AC IM Last 24 Hrs of Lab/Sonny Results Last 24 Hrs of Labs/Mics: Laboratory Tests 10/22/17 0805: Urine Osmolality 198 L, Ur Random Creatinine 35.4, Ur Random Sodium 13 L, Ur Random Potassium 8.9, Fraction Sodium Excret 0.2 10/22/17 0640: Anion Gap 6, Estimated GFR > 60, BUN/Creatinine Ratio 25.0, Gho-T-Twewqamcnbx Pept Pending 10/22/17 0200: Urine Total Volume Pending, U Metanephrines 24 Hr Pending, U Normetanephrine 24h Pending, U Tot Metanephrine 24h Pending 10/21/17 2146: Microbiology 10/21 2149 LOWER RESP: Respiratory Culture - RES 10/21 2149 LOWER RESP: Gram Stain - RES Assessment/Plan Assessment: A: 72-year-old male pmhx: HLD, HTN, chronic back pain, diabetes presenting for chief complaint of nausea vomiting diarrhea found to also have pneumonia on CT scan. P: #pneumonia Patient remains afebrile without any white count CT chest:here is patchy, nodular consolidation in the posterior right base, with appearance suggesting acute pneumonia. Flu, urinary antigens, negative Passed formal swallow eval [facility] shows mixed resp antonieta - cont ceftriaxone, azithromycin #type II ND trops .38, .27, .2 Echo - EF >65% -Most likely secondary to demand ischemia 2/2 to infection #LE edema Continues to be 2+ Pro bnp 543 -no hx of CHF -decreased pregabalin dose -high po intake, advised to reduce free fluid intake #lytes abnormal possible due to n/v/d vs aldosterone tumor NA 134 -> 131 -> 134 K3.3 -> 3.8 albumin 3.0 Patient also hypertensive Cortisol 26.2 -replenishing lytes as needed -Follow-up aldosterone levels, plasma renin, metanephrines -Continue to monitor bep #N/V/D Possibly due to pneumonia versus gastroenteritis C.diff negative -Encourage by mouth intake #hypoglycemia BS 54 originally, now hyperglycemic -stopped home medications - Continue NovoLog sliding scale -Consider endocrinology consult as patient does not have a twisting frame fixer #htn BP remains near hypertensive urgency range -cont lisinopril 30mg daily #elevated alp AST 101, ALT 65, ALP 203 T bili and direct bili normal -possile due to gall stones but asymptomatic, patient denies etoh use -f/u outpatient GI consult #ct findings; gallstones, fatty liver, L adrenal nodule, degenerative spine 1. There is cholelithiasis 2. There is hepatic steatosis. 3. A 1.5 cm left adrenal nodule is indeterminate but likely benign. 4. There are small fat-containing umbilical and bilateral inguinal hernias. 5. There are marked thoracolumbar degenerative changes. -will need outpatient follow-up for left adrenal nodule #chronic medical conitions; hld, back pain -aspirin, Atorvastatin, pregabalin #FULL CODE #DVT ppx heparin subcutaneous Problem List: 1. Type 2 myocardial infarction 2. Abnormal finding on CT scan Pain Ratin Pain Location: none Pain Goal: Pain 4 or less Pain Plan: pain pathway Tomorrow's Labs & Rationales: bep Trina Salinasjames 10/22/17 1608: Attending MD Review Statement Attending Statement Attending MD Statement: examined this patient, discuss w/resident/PA/TIRE SERVICE TECHNICIAN, agreed w/resident/PA/TIRE SERVICE TECHNICIAN, reviewed EMR data (avail), discussed with nursing, discussed with case mgmt Attending Assessment/Plan: Pneumonia- cont on ceftriaxone and zithromax. DM- bs slightly high, will increase SSI to medium dose. Slighly high AM cortisol level could be related to uncontrolled DM. will have him f/u with endocrine as an outpatient. d/w pt the care plan.
[2017-10-22 09:15] VITALS: BP 176/76
--- NOTE | 2017-10-22 10:32 | Patient Discharge Instructions ---
Discharge Instructions General Discharge Information Special Instructions: Please follow up with your pcp in 1-2 weeks. Please have your pcp refer you to an systems planner. Please follow up with cardiology Dr. Trujillo in 1-2 weeks. Or talk to your pcp about following a handle lathe operator of your choice. Please discuss with your pcp regarding your imaging findings. Please take your medications as perscribed. Acute Coronary Syndrome Inclusion Criteria At DC or during hospital stay patient has or had the following: ACS DIAGNOSIS No Discharge Core Measures Meds if any: Prescribed or Continued at Discharge Meds if any: NOT Prescribed or Continued at Discharge Congestive Heart Failure Inclusion Criteria At DC or during hospital stay patient has or had the following: CHF DIAGNOSIS No Discharge Core Measures Meds if any: Prescribed or Continued at Discharge Meds if any: NOT Prescribed or Continued at Discharge Cerebrovascular accident Inclusion Criteria At DC or during hospital stay patient has or had the following: CVA/TIA Diagnosis No Discharge Core Measures Meds if any: Prescribed or Continued at Discharge Meds if any: NOT Prescribed or Continued at Discharge Venous thromboembolism Inclusion Criteria VTE Diagnosis No VTE Type NONE VTE Confirmed by (Test) NONE Discharge Core Measures - Per Current guidelines, there needs to be overlap - treatment for the first 5 days of Warfarin therapy. - If discharged on Warfarin prior to 5 days of - overlap therapy, the patient will need to be - assessed for post discharge needs including - *Post discharge parental anticoagulation - *Warfarin and/or parental anticoagulation education - *Follow up date to check INR post discharge At least 5 days overlap therapy as Inpatient No Meds if any: Prescribed or Continued at Discharge Note: Overlap Therapy is Warfarin and Anticoagulant Meds if any: NOT Prescribed or Continued at Discharge
[2017-10-22] MEDS ORDERED: AUGMENTIN 875-1 EACH PO (10:43)
[2017-10-22] MEDS ORDERED: LISINOPRIL30 M1 PO (10:49)
[2017-10-22 14:15] VITALS: BP 160/90
[2017-10-22 22:53] VITALS: BP 158/94
[2017-10-23 06:47] VITALS: BP 164/84
--- NOTE | 2017-10-23 08:09 | PN- Housestaff ---
Miguel RODRIGUEZ,[facility] 10/23/17 0809: Subjective Follow-up For: N/V ?aldosterone tumor Pna type 2 AL hypoglycemia HTN abnormal electrolytes Tele-Events Since Last Visit: NSR BBB 69-82 QRS .12 [place] .20 Subjective: No acute events overnight. Wishing to go home. Review of Systems Constitutional: Reports: see HPI. Objective Last 24 Hrs of Vital Signs/I&O Vital Signs Date Time Temp Pulse Resp B/P B/P Pulse O2 O2 Flow FiO2 Mean Ox Delivery Rate 10/23 1123 154/100 10/23 1001 76 172/104 10/23 0822 72 156/100 10/23 0820 72 156/100 10/23 0800 Room Air 10/23 0647 97.9 72 18 164/84 96 Room Air 10/23 0000 Room Air 10/22 2253 97.8 75 18 158/94 96 Room Air Intake & Output 10/23 1600 10/23 0800 10/23 0000 Intake Total 442 374 5264 Output Total 199 861 9534 Balance -50 -380 232 Intake, IV 20 270 Intake, Oral 448 421 5208 Number 1 Bowel Movements Output, Urine 392 723 3998 Physical Exam General Appearance: Alert, Oriented X3, Mild Distress Cardiovascular: Regular Rate, Normal S1, Normal S2 Lungs: mild RLB crackles Abdomen: Normal Bowel Sounds, Soft, No Tenderness Extremities: 2+ LE edema b/l Vascular: 2+ radial pulses Current Medications: Current Medications Sig/Bharat Start time Last Medication Dose Route Stop Time Status Admin Aspirin 81 MG DAILY 10/21 1000 DCD 10/23 PO 0822 Atorvastatin Calcium 80 MG 1700 10/21 1700 DCD 10/22 PO 1702 Azithromycin 500 MG Q24H 10/21 2000 DCD 10/22 Dextrose/Water 250 ML IV 1939 Ceftriaxone Sodium 2,000 MG DAILY 10/20 1807 DCD 10/23 IV 0822 Docusate Sodium 100 MG DAILY NEEDED PRN 10/22 0945 DCD PO Heparin Sodium 5,000 UNIT Q8 10/20 2200 DCD 10/23 (Porcine) SC 1308 Insulin Aspart 0 TIDAC 10/22 1200 DCD 10/23 SC 1229 Insulin Detemir 5 UNITS BID 10/23 1000 DC SC Insulin Detemir 10 UNITS BID 10/23 1000 DCD 10/23 SC 0822 Lisinopril 30 MG DAILY 10/22 1000 DCD 10/23 PO 0822 Patient Medication 1 ED ONE ONE 10/23 1230 DC Teaching ED 10/23 1231 Polyethylene Glycol 17 GM DAILY PRN 10/22 0945 DCD 10/22 PO 0935 Pregabalin 150 MG BID 10/22 2200 DCD 10/23 PO 0824 Senna 187 MG AT BEDTIME NEED.. 10/22 0945 DCD PO Trimethobenzamide HCl 200 MG 4 TIMES/DAY PRN 10/20 1815 DCD IM Assessment/Plan Assessment: A: 72-year-old male pmhx: HLD, HTN, chronic back pain, diabetes presenting for chief complaint of nausea vomiting diarrhea found to also have pneumonia on CT scan. P: #pneumonia Patient remains afebrile without any white count CT chest:here is patchy, nodular consolidation in the posterior right base, with appearance suggesting acute pneumonia. Flu, urinary antigens, negative Passed formal swallow eval [facility] - mixed cultures -stopped ceftriaxone, azithromycin and dc'ed with augmentin x4 more days #type II AL trops .38, .27, .2 Echo - EF >65% -Most likely secondary to demand ischemia 2/2 to infection #lytes abnormal possible due to n/v/d vs aldosterone tumor NA 134 -> 131 -> 134 K3.3 -> 3.8 albumin 3.0 Urine osm 198, random cr 35.4, random na 13, fena .2 AM cortisol 26.2 Patient also hypertensive -holding fluids as patient now taking po -replenishing lytes as needed -Follow-up aldosterone levels, plasma renin, metanephrines, -Continue to monitor bep #LE edema Continues to be 2+ Pro bnp 543 -no hx of CHF -decreased pregabalin dose -patient has high po intake, advised to reduce free fluid intake #N/V/D Possibly due to pneumonia versus gastroenteritis C.diff negative -Encourage by mouth intake #hypoglycemia BS 54 originally, now hyperglycemic -stopped home medications - Continue NovoLog sliding scale -advised to f/u with outpatient endo referral from pcp #htn BP remains near hypertensive urgency range, improved after increasing lisinorpil from 20 -> 30 -cont lisinopril to 30mg daily #ct findings; gallstones, fatty liver, L adrenal nodule, degenerative spine 1. There is cholelithiasis 2. There is hepatic steatosis. 3. A 1.5 cm left adrenal nodule is indeterminate but likely benign. 4. There are small fat-containing umbilical and bilateral inguinal hernias. 5. There are marked thoracolumbar degenerative changes. -will need outpatient follow-up for left adrenal nodule #chronic medical conitions; hld, back pain -aspirin, Atorvastatin, pregabalin #FULL CODE #DVT ppx heparin subcutaneous Problem List: 1. Type 2 myocardial infarction 2. Abnormal finding on CT scan Pain Ratin Pain Location: none Pain Goal: Pain 4 or less Pain Plan: pain pathway Tomorrow's Labs & Rationales: none Madhav Salinas 10/23/17 1218: Attending MD Review Statement Attending Statement Attending MD Statement: examined this patient, discuss w/resident/PA/ELECTRONICS SPECIALIST, agreed w/resident/PA/ELECTRONICS SPECIALIST, reviewed EMR data (avail), discussed with nursing, discussed with case mgmt Attending Assessment/Plan: DC home in stable condition. Pneumonia- dc on po augmenting for 4 more days. pt encouraged to follow diabetic diet. Pt will be f/u with Dr Palomares after discharge. d/w pt the care plan.
[2017-10-23 08:20] VITALS: BP 156/100
[2017-10-23 10:01] VITALS: BP 172/104
[2017-10-23 11:23] VITALS: BP 154/100
[2017-10-23] MEDS ORDERED: AUGMENTIN 875-1 EACH PO ×2 (13:05→14:05)
[2017-10-23] MEDS ORDERED: LISINOPRIL30 M1 PO ×2 (13:06→14:05)
[2017-10-23] MEDS ORDERED: LYRICA75 M1 PO (13:08)
[2017-10-23] MEDS ORDERED: LYRICA150 M1 PO (14:05)
[2017-10-23] MEDS ORDERED: JANUMET 50-1,01 EACH PO (14:07)
--- NOTE | 2017-10-26 11:24 | Discharge Summary ---
Visit Information Visit Dates Admission Date: 10/20/17 Discharge Date: 10/23/17 Hospital Course Course Attending Physician: Brad RODRIGUEZ,Madhav Sumner Primary Care Physician: Jonathan Palomares MD Hospital Course: 72-year-old male pmhx: HLD, HTN, chronic back pain, diabetes presenting for chief complaint of nausea, vomiting, and diarrhea who was found to have type II CA secondary to pneumonia. Problem list #Pneumonia The patient was found to have pneumonia of the posterior right lung per CT scan. Rapid flu, urinary Legionella and strep pneumo were negative. The patient passed formal swallow eval as we were concerned for aspiration pneumonia given the location on imaging. His lower respiratory cultures revealed mixed cultures. He was afebrile without any leukocytosis during admission. He was treated with 4 doses of ceftriaxone and 3 doses of azithromycin. He was discharged with Augmentin for 4 more days. #Type II CA The patient was admitted to the telemetry unit due to elevated troponins. His initial troponin was 0.38 and then down trended to 0.2. Most likely this was demand ischemia secondary to the pneumonia. He was seen by cardiology. Echocardiogram revealed EF >65% with no obvious wall motion abnormalities. #Electrolyte abnormalities due to n/v/d vs possible aldosterone tumor The patient initially presented with hypertension, borderline hyponatremia,mild hypokalemia, and a 1.5 cm left adrenal nodule on CT scan. There were initial concerns of a possible aldosterone tumor. His albumin was low at 3.0. Urine studies revealed urine osm 198, random cr 35.4, random na 13, fena .2. His morning cortisol was slightly elevated at 26.2. His renin, aldosterone, and urine metanephrine levels are still pending. We replenished his potassium as needed. The patient was advised to follow-up with his PCP and endocrinology. #Htn The patient's blood pressure was elevated and was near hypertensive urgency range. We increased his lisinopril from 20 mg 30 mg daily and his blood pressure improved. #LE edema The patient has no history of CHF. However his proBNP was elevated at 543. He continued to have 2+ pitting edema lower extremities. We decrease his pregabalin dose as that can contribute to his lower extremity edema. The patient also states that he has a high by mouth fluid intake and was advised to reduce the free fluid intake. His echocardiogram revealed EF greater than 65% with no regional wall motion abnormalities. The patient was advised to follow- up with cardiology. #N/V/D The patient presented with nausea vomiting diarrhea. C. difficile was negative. Possibly due to pneumonia but also possibly gastroenteritis. #Hypoglycemia in the setting of Diabetes The patient was found to initially have a blood sugar is 54. We held his home medications and started him on NovoLog sliding scale. The patient was hyperglycemic during admission. He was advised to talk to his PCP for an endocrinology referral to control his diabetes. #CT Scan findings; gallstones, fatty liver, L adrenal nodule, degenerative spine 1. There is cholelithiasis 2. There is hepatic steatosis. 3. A 1.5 cm left adrenal nodule is indeterminate but likely benign. 4. There are small fat-containing umbilical and bilateral inguinal hernias. 5. There are marked thoracolumbar degenerative changes. The patient will require outpatient follow-up with the left adrenal nodule as stated above. #Chronic medical conitions; hld, back pain We continued aspirin, atorvastatin, pregabalin (lower dose). Allergies: Coded Allergies: NO KNOWN ALLERGIES (10/20/17) Significant Procedures: EXAM TYPE: CARD - ECHOCARDIOGRAM JOEL REIS Age: 72 : 1945 Gender: M Exam Date: 10/21/2017 09:59 Exam Location: [place] Ht (in): 72 Wt (lb): 243 BSA: 2.40 BP: 178 / 80 Ordering Physician: Hua Mendieta MD Referring Physician: Hua Mendieta MD Technologist: Manolo Robison [facility] Room Number: 184-1 Indications: Chest Pain Rhythm: Sinus Technical Quality: Fair FINDINGS Left Ventricle Normal global left ventricular size, wall thickness, systolic function with no obvious regional wall motion abnormalities. Left ventricular ejection fraction is estimated at >65 %. Normal left ventricular diastolic filling pattern for age. Right Ventricle The right ventricle is normal in size and function. Right Atrium The right atrium is normal in size. Left Atrium The left atrium is normal in size. The interatrial septum is intact. Mitral Valve Mild thickening/calcification of the mitral valve leaflets. Mild mitral annular calcification. No mitral regurgitation. Aortic Valve Focal thickening of the aortic valve cusps. No aortic stenosis. No aortic regurgitation. Tricuspid Valve The tricuspid valve is normal in structure and function. There is trace tricuspid regurgitation. Pulmonary artery systolic pressure is normal. Pulmonic Valve Structurally normal pulmonic valve. There is trace pulmonic regurgitation. Pericardium Normal pericardium without effusion. No pleural effusion. Great Vessels Normal aortic root dimension. The aortic arch and great vessels are not seen. CONCLUSIONS Normal global left ventricular size, wall thickness, systolic function with no obvious regional wall motion abnormalities. Left ventricular ejection fraction is estimated at >65 %. The left atrium is normal in size. Mild thickening/calcification of the mitral valve leaflets. Mild mitral annular calcification. Focal thickening of the aortic valve cusps. No aortic stenosis. Pulmonary artery systolic pressure is normal. The aortic arch and great vessels are not seen. Joe Trujillo M.D. (Electronically Signed) Final Date: 21 October 2017 12:31 MEASUREMENTS (Male / Female) Normal Values 2D ECHO LV Diastolic Diameter PLAX 4.8 cm 4.2 - 5.9 / 3.9 - 5.3 cm LV Systolic Diameter PLAX 2.5 cm 2.1 - 4.0 cm LV Fractional Shortening PLAX 47.9 % 25 - 46 % LV Ejection Fraction 2D Teich 79.2 % IVS Diastolic Thickness 1.1 cm LVPW Diastolic Thickness 0.9 cm LV Relative Wall Thickness 0.4 RV Internal Dim ED PLAX 3.4 cm 1.9 - 3.8 cm LVOT Diameter 1.9 cm Aortic Root Diameter 3.0 cm LA Systolic Diameter LX 3.9 cm 3.0 - 4.0 / 2.7 - 3.8 cm LA Volume 48.0 cm 18 - 58 / 22 - 52 cm Ascending Aorta Diameter 3.0 cm DOPPLER AV Peak Velocity 145.0 cm/s AV Peak Gradient 8.4 mmHg AV Mean Velocity 93.3 cm/s AV Mean Gradient 4.0 mmHg AV Velocity Time Integral 29.8 cm LVOT Peak Velocity 96.3 cm/s LVOT Peak Gradient 3.7 mmHg LVOT Mean Velocity 59.0 cm/s LVOT Mean Gradient 2.0 mmHg LVOT Velocity Time Integral 25.5 cm LVOT Stroke Volume 72.3 cm AV Area Cont Eq vti 2.4 cm AV Area Cont Eq pk 1.9 cm MV Peak Velocity 138.0 cm/s MV Peak Gradient 7.6 mmHg MV Mean Velocity 78.6 cm/s MV Mean Gradient 3.0 mmHg Mitral E Point Velocity 84.9 cm/s Mitral A Point Velocity 77.0 cm/s Mitral E to A Ratio 1.1 MV PHT Velocity 138.0 cm/s MV Deceleration Hickman 564.0 cm/s MV Pressure Half Time 73.4 ms MV Area PHT 3.0 cm MV Deceleration Time 225.0 ms TR Peak Velocity 210.0 cm/s TR Peak Gradient 17.6 mmHg Right Atrial Pressure 5.0 mmHg Pulmonary Artery Systolic Pressu 22.6 mmHg Right Ventricular Systolic Press 22.6 mmHg PV Peak Velocity 146.0 cm/s PV Peak Gradient 8.5 mmHg PV Mean Velocity 89.9 cm/s PV Mean Gradient 4.0 mmHg PV Velocity Time Integral 30.8 cm LV E' Lateral Velocity 5.4 cm/s Mitral E to LV E' Lateral Ratio 15.8 LV E' Septal Velocity 6.1 cm/s Mitral E to LV E' Septal Ratio 13.8 EXAM TYPE: CAT - CT ABD & PELVIS W IV CONTRAST EXAMINATION: CT ABDOMEN AND PELVIS WITH CONTRAST CLINICAL INFORMATION: Diarrhea and vomiting; question colitis, diverticulitis or small bowel obstruction. COMPARISON: None TECHNIQUE: Multidetector volumetric imaging was performed of the abdomen and pelvis following IV administration of 95 mL of Optiray 320 intravenous contrast. Sagittal and coronal reformatted images were obtained on the technologist's workstation. DLP: 1408.27 mGy-cm FINDINGS: LUNG BASES: There is patchy, nodular consolidation at the posterior right base. There are coronary artery atherosclerotic calcifications. LIVER, GALLBLADDER, AND BILIARY TREE: The liver is normal in size, shape, and mildly diminished in attenuation. No focal hepatic lesion or biliary ductal dilatation is present. There are small layering gallstones, without gallbladder wall thickening, or obvious pericholecystic inflammatory changes. PANCREAS: Unremarkable. SPLEEN: Unremarkable. ADRENAL GLANDS: The right adrenal gland is unremarkable. In the posterior limb of the left adrenal gland (2:29), there is a 1.5 cm nodule with post IV contrast Hounsfield value of 24.0 units. KIDNEYS AND URETERS: The kidneys are normal in size, shape, and attenuation. No hydronephrosis, hydroureter, or calculi seen. At the lower pole of the right kidney (602:61), a 1.2 cm low-attenuation probable cyst is seen, too small to fully characterize with CT. No perinephric stranding. BLADDER: Unremarkable. GASTROINTESTINAL TRACT: The rectosigmoid is mildly distended with liquid stool. No focal bowel wall thickening is seen. There is no obstruction or ileus. There is no significant diverticulosis or diverticulitis. The vermiform appendix appears diminutive and unremarkable. ABDOMINAL WALL: There is a small fat-containing umbilical hernia. There are small fat-containing bilateral inguinal hernias. LYMPH NODES: Normal. VASCULAR: There is moderate aortoiliac atherosclerotic change. No abdominal aortic aneurysm is seen. PELVIC VISCERA: The prostate and seminal vesicles are unremarkable. Coarse prostate calcifications are seen. OSSEOUS STRUCTURES: There is marked multi-level thoracolumbar degenerative disc disease and spondylosis. There is a mild anterior wedge compression fracture of L3, chronicity indeterminate. IMPRESSION: 1. There is patchy, nodular consolidation in the posterior right base, with appearance suggesting acute pneumonia. Please correlate clinically. Consider chest radiographic follow-up. 2. There is cholelithiasis, without cholecystitis seen. 3. There is hepatic steatosis. 4. A 1.5 cm left adrenal nodule is indeterminate but likely benign. There are various recommendations for management and followup. Based upon a combination of expert imaging consensus and [employer] consultant input ([id number], December 2015) if the patient has no known malignancy hormonal evaluation is recommended for these lesions measuring less than or equal to 2.4 cm. Some of these adrenal lesions secrete hormones including cortisol. Repeat imaging may be obtained in 12 months. 5. No bowel obstruction, free intraperitoneal air or abscess is seen. There is no appendicitis or diverticulitis. 6. There are small fat-containing umbilical and bilateral inguinal hernias. 7. There are marked thoracolumbar degenerative changes. Disposition Summary Disposition Principal Diagnosis: Pneumonia Additional Diagnosis: Type 2 CA Hypertension Electrlytes abnormality Adrenal mass Nausea, vomiting, diarrhea Hypoglycemia in the setting of Diabetes Abnormal CT findings Discharge Disposition: home health services Discharge Instructions General Discharge Information Code Status: Full Code Patient's Diet: Low fat, heart healthy Patient's Activity: As tolerated Follow-Up Instructions/Appts: Please follow up with your pcp in 1-2 weeks. Please have your pcp refer you to an [employer] consultant. Please follow up with cardiology Dr. Trujillo in 1-2 weeks. Or talk to your pcp about following a automobile body customizer of your choice. Please discuss with your pcp regarding your imaging findings. Please take your medications as perscribed. Medications at Discharge Discharge Medications: Stop taking the following medications: Lisinopril (Lisinopril) 20 MG TABLET ORAL DAILY Qty = 90 Pregabalin (Lyrica) 200 MG CAPSULE ORAL TWICE DAILY Qty = 60 Continue taking these medications: Aspirin (Aspirin*) 81 MG TAB.CHEW 1 Tablet ORAL DAILY Comments: Last Taken: 10/23/17 Time: 9AM Atorvastatin Calcium (Atorvastatin Calcium) 80 MG TABLET 1 Tablet ORAL DAILY Qty = 30 Comments: Last Taken: 10/22/17 Time: 5PM Insulin Glargine,Hum.rec.anlog (Toujeo Solostar) (Unknown Strength) INSULN.PEN 75 Units Inject into fatty tissue Every night Qty = 45 Comments: NOT GIVEN IN HOSPITAL Insulin Lispro (Humalog) (Unknown Strength) VIAL Unknown Dose DAILY Qty = 10 Comments: NOT GIVEN IN HOSPITAL Ondansetron HCl (Ondansetron HCl) 4 MG TABLET 1 Tablet ORAL TWICE DAILY Qty = 40 Comments: Last Taken: 10/20/17 Time: 4PM Start taking the following new medications: Lisinopril (Lisinopril) 30 MG TABLET 1 Tablet ORAL DAILY Qty = 30 No Refills Instructions: . Comments: Last Taken: 10/23/17 Time: 9AM Amoxicillin/Potassium Clav (Augmentin 875-125 Tablet) 875 MG-125 MG TABLET 1 Tablet ORAL TWICE DAILY Qty = 8 No Refills Instructions: . Comments: NOT GIVEN IN HOSPITAL Pregabalin (Lyrica) 150 MG CAPSULE 1 Capsule ORAL TWICE DAILY Qty = 14 No Refills Comments: Last Taken: 10/23/17 Time: 9AM The following medications have been changed: Old: Sitagliptin Phos/Metformin HCl (Janumet 50-1,000 MG Tablet) 50 MG-1,000 MG TABLET 1 Tablet ORAL TWICE DAILY New: Sitagliptin Phos/Metformin HCl (Janumet 50-1,000 MG Tablet) 50 MG-1,000 MG TABLET 1 Tablet ORAL TWICE DAILY Qty = 30 Instructions: . Comments: NOT GIVEN IN HOSPITAL Copies To: Jelani RODRIGUEZ,Jonathan Choi
== END 2017-10-23 15:08 | disposition home health service (06) | DRG 193 ==
LOC: ERH 12:04 → ERHI 16:43 → 1NO 16:43 → ENRESERV 19:01 → CANRESERV 19:01 → ENRESERV 20:13 → ENTRNSPT 21:17 → EDTRNSPT 21:23 → EDTRNSPTSTS 21:23 → 1NO 21:30 → CMPTRNSPT 21:43 → 1NO 10-21 08:06 → ENPENDDIS 10-23 14:13 → ENTRNSPT 10-23 14:52 → EDTRNSPTSTS 10-23 14:55 → CMPTRNSPT 10-23 15:03 → 1NO 10-23 15:08
PROVIDERS: Physician Assistant Medical
DX: J18.9 Pneumonia, unspecified organism (principal); I21.A1 Myocardial infarction type 2; E11.649 Type 2 diabetes mellitus with hypoglycemia without coma; E87.1 Hypo-osmolality and hyponatremia; E11.8 Type 2 diabetes mellitus with unspecified complications; E86.0 Dehydration; D44.12 Neoplasm of uncertain behavior of left adrenal gland; Z79.4 Long term (current) use of insulin; E87.6 Hypokalemia; Z96.41 Presence of insulin pump (external) (internal); I10 Essential (primary) hypertension; I45.10 Unspecified right bundle-branch block; K52.9 Noninfective gastroenteritis and colitis, unspecified; R93.8 Abnormal findings on diagnostic imaging of other specified body structures; E78.5 Hyperlipidemia, unspecified; M54.9 Dorsalgia, unspecified; Z79.82 Long term (current) use of aspirin; Z87.891 Personal history of nicotine dependence; K80.20 Calculus of gallbladder without cholecystitis without obstruction; K76.0 Fatty (change of) liver, not elsewhere classified; R79.89 Other specified abnormal findings of blood chemistry; R11.10 Vomiting, unspecified; R35.8 Other polyuria; E66.9 Obesity, unspecified; Z68.32 Body mass index [BMI] 32.0-32.9, adult
CPT/HCPCS: 1NP; 84133; 84300; 36415; 36592; 71046; 74177; 81001; 82436; 82570; 87070; 87449; 87450; 87804; 87804-59; 93005; 93010; 93306; 96374; J0456; J0696; J1644; J2405; J3490; J7040; J7060